=== PATIENT | female | born 1945 | race Caucasian/White ===

== ENCOUNTER → 2020-11-12 | Outpatient (CLI) | payer OTHER ==
[~2020-11-12] MED LIST: DICYCLOMINE HCL10 MG PO; FLAGYL500 MG PO; IPRAT-ALBUT 0.5-3 ML INH; ISOSORBIDE MONO30 MG PO; JANUMET 50-5001 EACH PO; KLONOPIN TAB 00.5 MG PO; LACTINEX PACKET1 PKT PO; LEVAQUIN500 MG PO; LEVOTHYROXINE112 MCG PO; LISINOPRIL40 MG PO; LOMOTIL TABLET1 EA PO; LYRICA150 MG PO; MACROBID 100 M100 MG PO; MAGNESIUM400 MG PO; PAXIL30 MG PO; PERCOCET 5-3251 EACH PO; PLAVIX 75 MG TA75 MG PO; PROAIR HFA8.5 GM INH; PROTONIX40 MG PO; SINGULAIR10 MG PO; SPIRIVA18 MCG INH; SYMBICORT 160-1 INHA INH; TENORMIN 25 MG25 MG PO; TRAZODONE HCL150 MG PO; TRAZODONE HCL50 MG PO; TYLENOL W/CODEIN1 E1 PO; XIFAXAN550 MG PO; ZANAFLEX2 MG PO
== END ==
LOC: EXRD 15:00
DX: I70.235 Atherosclerosis of native arteries of right leg with ulceration of other part of foot (principal)
CPT/HCPCS: 93925

== ENCOUNTER 2021-01-02 18:30 | Inpatient (IN) | payer OTHER ==
[~2021-01-02] VITALS: Ht 154.9 cm; Wt 68.0 kg
[2021-01-02] MEDS ORDERED: VITAMIN D325 MCG GT (21:37)
[2021-01-02] MEDS ORDERED: ALBUTEROL2.5 MG/3 M INH (21:37)
[2021-01-02] MEDS ORDERED: ATENOLOL25 MG PO (21:38)
[2021-01-02] MEDS ORDERED: CETIRIZINE HCL10 MG PO (21:38)
[2021-01-02] MEDS ORDERED: ASPIRIN EC81 MG PO (21:38)
[2021-01-02] MEDS ORDERED: DESYREL 50 MG T50 MG PO (21:39)
[2021-01-02] MEDS ORDERED: DEXILANT60 MG PO (21:39)
[2021-01-02] MEDS ORDERED: CLOPIDOGREL75 MG PO (21:39)
[2021-01-02] MEDS ORDERED: FUROSEMIDE20 MG PO (21:40)
[2021-01-02] MEDS ORDERED: JANUVIA100 MG PO (21:41)
[2021-01-02] MEDS ORDERED: LEVOTHYROXINE88 MCG PO (21:42)
[2021-01-02] MEDS ORDERED: KLONOPIN TAB 00.5 MG PO (21:42)
[2021-01-02] MEDS ORDERED: CRESTOR 10 MG T10 MG PO (21:43)
[2021-01-02] MEDS ORDERED: MONTELUKAST SOD10 MG PO (21:43)
[2021-01-02] MEDS ORDERED: OXYCODONE-ACET1 EACH PO (21:43)
[2021-01-02] MEDS ORDERED: LANTUS SOL100 UNIT/1 SQ (21:44)
[2021-01-02] MEDS ORDERED: PAROXETINE HCL40 MG PO (21:45)
[2021-01-02] MEDS ORDERED: MAG-OX 400 TAB400 MG GT (21:45)
[2021-01-02 23:40] LABS: RED BLOOD COUNT 2.3 M/UL (4.00-5.10); WHITE BLOOD COUNT 18.5 K/UL (4.5-11.0)
[2021-01-02 23:43] LABS: HEMOGLOBIN 6.9 gm/dl (12.3-15.3)
[2021-01-03 00:51] LABS: BORDETELLA PARAPERTUSSIS Not Detected (Not Detectd); BORDETELLA PERTUSSIS Not Detected (Not Detectd); CHLAMYDIA PNEUMONIAE Not Detected (Not Detectd); CORONAVIRUS HKU1 Not Detected (Not Detectd); CORONAVIRUS NL63 Not Detected (Not Detectd); CORONAVIRUS OC43 Not Detected (Not Detectd); CORONOAVIRUS 229E Not Detected (Not Detectd); HUMAN METAPNEUMOVIRUS Not Detected (Not Detectd); HUMAN RHINOVIRUS/ENTEROVIRUS Not Detected (Not Detectd); INFLUENZA A Not Detected (Not Detectd); INFLUENZA B Not Detected (Not Detectd); MYCOPLASMA PNEUMONIAE Not Detected (Not Detectd); PARAINFLUENZA VIRUS 1 Not Detected (Not Detectd); PARAINFLUENZA VIRUS 2 Not Detected (Not Detectd); PARAINFLUENZA VIRUS 3 Not Detected (Not Detectd); PARAINFLUENZA VIRUS 4 Not Detected (Not Detectd); RESPIRATORY SYNCYTIAL VIRUS Not Detected (Not Detectd)
[2021-01-03 01:46] LABS: SARS-CoV-2 NOT DETECTED (Not Detectd)
[2021-01-03 02:26] LABS: RED BLOOD COUNT 2.27 M/UL (4.00-5.10); WHITE BLOOD COUNT 17.2 K/UL (4.5-11.0)
[2021-01-03 02:30] LABS: HEMOGLOBIN 6.8 gm/dl (12.3-15.3)
[2021-01-03 08:32] LABS: HEMOGLOBIN 8.8 gm/dl (12.3-15.3); RED BLOOD COUNT 2.98 M/UL (4.00-5.10)
--- NOTE | 2021-01-03 16:40 | NUR ---
VENOUS SHEATH PULLED AT 1524, MANUAL PRESSURE APPLIED. ARTERIAL SHEATH PULLED AFTER 3 MINUTES, COTINUED MANUAL PRESSURE UNTIL HEMOSTASIS ACHIEVED AT 10 MINUTES. APPLIED FEMSTOP PER MD ORDER TO ABOVE DIASTOLIC PRESSURE FOR 10 MORE MINUTES, THEN GRADUALLY DECREASED [id number] TO SANDBAG PRESSURE OF 30MMHG. PT TOLERATED PROCEDURE WELL. NO COMPLICATIONS, SITE MONITORED Q15MIN WITH NO CHANGES. NO EVIDENCE OF BLEEDING OR HEMATOMA.
[2021-01-04 05:02] LABS: HEMOGLOBIN 9.4 gm/dl (12.3-15.3); RED BLOOD COUNT 3.2 M/UL (4.00-5.10); WHITE BLOOD COUNT 13.3 K/UL (4.5-11.0)
[2021-01-05 04:51] LABS: HEMOGLOBIN 9.7 gm/dl (12.3-15.3); RED BLOOD COUNT 3.28 M/UL (4.00-5.10)
[2021-01-05 04:54] LABS: WHITE BLOOD COUNT 9.7 K/UL (4.5-11.0)
[2021-01-06 06:26] LABS: HEMOGLOBIN 11.2 gm/dl (12.3-15.3); RED BLOOD COUNT 3.8 M/UL (4.00-5.10)
--- NOTE | 2021-01-07 03:15 | NUR ---
0145 ASSESSED IV SITE BEFORE LASIX, RED, PURPLE BRUISE AREA, EDEMATOUS, 0147 PULLED 2 OTHER STAFF NURSES TO ASSESS, FLUSHED WELL, NO BLOOD RETURN, 0149 D/C AND PRESSURE APPLIED, GUAZE AND TAPE APPLIED. CALLED PHARM AND SPOKE WITH MAYTE ADVISED OF ABOVE AND MEDICATION IV GIVEN STATES COULD APPLIED WARM COMPRESS. 0210 WARM COMPRESS IS APPLIED. PT TOLERATED WELL, PT ASLEEP
[2021-01-07 07:34] LABS: HEMOGLOBIN 10.9 gm/dl (12.3-15.3); RED BLOOD COUNT 3.79 M/UL (4.00-5.10); WHITE BLOOD COUNT 9.5 K/UL (4.5-11.0)
[2021-01-08 06:48] LABS: HEMOGLOBIN 11.7 gm/dl (12.3-15.3); RED BLOOD COUNT 3.97 M/UL (4.00-5.10); WHITE BLOOD COUNT 8.9 K/UL (4.5-11.0)
[2021-01-09 06:45] LABS: HEMOGLOBIN 11.8 gm/dl (12.3-15.3); RED BLOOD COUNT 3.99 M/UL (4.00-5.10)
[2021-01-10 07:16] LABS: HEMOGLOBIN 12.7 gm/dl (12.3-15.3); RED BLOOD COUNT 4.34 M/UL (4.00-5.10); WHITE BLOOD COUNT 7.4 K/UL (4.5-11.0)
[2021-01-11] MEDS ORDERED: LOPRESSOR 25 MG25 MG PO (09:42)
[2021-01-11] MEDS ORDERED: FUROSEMIDE20 MG PO (09:42)
[2021-01-11] MEDS ORDERED: ATORVASTATIN CA20 MG PO (09:42)
[2021-01-11] MEDS ORDERED: AMIODARONE HCL200 MG PO (09:42)
[2021-01-11] MEDS ORDERED: ZOFRAN ODT 4 MG4 MG SL (09:45)
== END 2021-01-11 15:13 | disposition home health service (06) | DRG 246 ==
LOC: ER1 18:30 → CDU 18:51 → CCU 18:51 → MED SURG 4 18:51 → CCU 20:00 → MED SURG 4 01-05 14:58
PROVIDERS: Emergency Medicine; Internal Medicine; Internal Medicine Cardiovascular Disease; ADMIT Internal Medicine
PROC: 027034Z Dilation of Coronary Artery, One Artery with Drug-eluting Intraluminal Device, Percutaneous Approach (ICD-10-PCS; principal; 2021-01-02)
PROC: 4A023N7 Measurement of Cardiac Sampling and Pressure, Left Heart, Percutaneous Approach (ICD-10-PCS; 2021-01-02)
PROC: B2111ZZ Fluoroscopy of Multiple Coronary Arteries using Low Osmolar Contrast (ICD-10-PCS; 2021-01-02)
PROC: B2151ZZ Fluoroscopy of Left Heart using Low Osmolar Contrast (ICD-10-PCS; 2021-01-02)
PROC: 0BH17EZ Insertion of Endotracheal Airway into Trachea, Via Natural or Artificial Opening (ICD-10-PCS; 2021-01-02)
PROC: 5A1945Z Respiratory Ventilation, 24-96 Consecutive Hours (ICD-10-PCS; 2021-01-02)
PROC: 30233N1 Transfusion of Nonautologous Red Blood Cells into Peripheral Vein, Percutaneous Approach (ICD-10-PCS; 2021-01-03)
PROC: B24BZZZ Ultrasonography of Heart with Aorta (ICD-10-PCS; 2021-01-03)
DX: I21.4 Non-ST elevation (NSTEMI) myocardial infarction (principal); J96.21 Acute and chronic respiratory failure with hypoxia; J69.0 Pneumonitis due to inhalation of food and vomit; I50.33 Acute on chronic diastolic (congestive) heart failure; J44.0 Chronic obstructive pulmonary disease with (acute) lower respiratory infection; E87.1 Hypo-osmolality and hyponatremia; N17.9 Acute kidney failure, unspecified; I13.0 Hypertensive heart and chronic kidney disease with heart failure and stage 1 through stage 4 chronic kidney disease, or unspecified chronic kidney disease; J44.1 Chronic obstructive pulmonary disease with (acute) exacerbation; Z66 Do not resuscitate; R47.02 Dysphasia; E78.5 Hyperlipidemia, unspecified; I08.3 Combined rheumatic disorders of mitral, aortic and tricuspid valves; Z20.822 Contact with and (suspected) exposure to COVID-19; I27.20 Pulmonary hypertension, unspecified; I25.10 Atherosclerotic heart disease of native coronary artery without angina pectoris; I48.0 Paroxysmal atrial fibrillation; E11.43 Type 2 diabetes mellitus with diabetic autonomic (poly)neuropathy; K31.84 Gastroparesis; N18.9 Chronic kidney disease, unspecified; E11.22 Type 2 diabetes mellitus with diabetic chronic kidney disease; D63.1 Anemia in chronic kidney disease; E87.6 Hypokalemia; Z79.82 Long term (current) use of aspirin; Z79.02 Long term (current) use of antithrombotics/antiplatelets; Z95.1 Presence of aortocoronary bypass graft; Z79.01 Long term (current) use of anticoagulants; Z95.5 Presence of coronary angioplasty implant and graft; Z88.2 Allergy status to sulfonamides; Z88.8 Allergy status to other drugs, medicaments and biological substances
CPT/HCPCS: ECHO; 31500; 36415; 36430; 36600; 43752; 51702; 71045; 74230; 80048; 80053; 80061; 80202; 81001; 82550; 82553; 82803; 82962; 83036; 83605; 83735; 83874; 83880; 84132; 84443; 84484; 85025; 85027; 85347; 85379; 85610; 85652; 85730; 86140; 86850; 86900; 86901; 86920; 87040; 87070; 87205; 87633; 92526; 92610; 92611-GN; 93005; 93306; 94002; 94003; 94640; 94760; 97110; 97110-GP-CQ; 97116-GP-CQ; 97161; 97166; 97530; 97530-GP-CQ; 99285; C9600; J0461; J1120; J1160; J1644; J1940; J1956; J2185; J2250; J3010; J3370; J3475; J3480; J7030; J7050; J7070; P9016; Q9965